=== PATIENT | male | born 1975 | race Native Hawaiian/Other Pacific Islander ===

== ENCOUNTER 2016-09-03 13:30 | Emergency (ER) | payer MEDICAID ==
[~2016-09-03] VITALS: Ht 177.8 cm; Wt 86.4 kg
[2016-09-03 16:37] VITALS: BP 122/82
== END 2016-09-03 17:04 | disposition home or self-care (01) ==
LOC: EMS 13:32
DX: M76.61 Achilles tendinitis, right leg (principal)
CPT/HCPCS: 99283